=== PATIENT | female | born 1985 | race Caucasian/White ===

== ENCOUNTER → 2017-05-14 | Outpatient (CLI) | payer BC ==
[2017-05-14 09:15] LABS: BLOOD GAS CARBOXYHEMOGLOBIN 3.7 % (0-4); BLOOD GAS HCO3 32 mmol/L (22-26); BLOOD GAS METHEMOGLOBIN 0.7 % (0-2); BLOOD GAS O2 HGB SATURATION 94 % (90-100); BLOOD GAS OXYGEN CONTENT 19.1 Vol % (12.0-20.0); BLOOD GAS PCO2 47 mmHG (38-42); BLOOD GAS PO2 97 mmHG (61-120); BLOOD GAS TOTAL HGB 14.4 G/DL (12.0-16.0); TEMP CORR TO 98.6
[2017-05-14 09:16] LABS: CRITICAL VALUE NO; DRAW SITE RT RADIAL; FIO2 21 %; NUMBER OF ARTERIAL PUNCTURES 1; STAT NO; ULNAR PULSE PRESENT
== END ==
LOC: PHRSP 08:53
DX: R06.89 Other abnormalities of breathing (principal)
CPT/HCPCS: 36600; 82805; 94060; 94726; 94729

== ENCOUNTER 2017-08-16 08:07 | Emergency (ER) | payer BC ==
[~2017-08-16] VITALS: Ht 170.2 cm; Wt 147.0 kg
[~2017-08-16 08:07] MED LIST: PERC5TAB12 PO
[2017-08-16 08:09] VITALS: BP 180/90; PULSE 108; RESP 16; TEMP 98.3; O2SAT 97
[2017-08-16] MEDS ORDERED: METF500T PO (08:17)
[2017-08-16] MEDS ORDERED: SODIUM CHLOR 0.9% 1000 ML INJ 1,000 ML IV SCH (08:34)
--- NOTE | 2017-08-16 08:44 | PD ---
HPI Chief Complaint: GI Complaint Time Seen by Provider: 08:34 Travel History International Travel<30 days: No Contact w/Intl Traveler<30days: No Traveled to known affect area: No History of Present Illness HPI Patient presents with complaints of nausea vomiting and diarrhea since last night. Past Rosalio history for hypertension depression and diabetes. Denies any blood per emesis or stool. Denies any urinary symptoms. Denies . Denies sick contacts. No new rashes. Denies any chest pain or shortness of breath. PFSH Past Medical History Depression: Yes Diabetes: Yes Patient Takes Glucophage: Yes Diminished Hearing: No Hypertension: Yes Respiratory: Yes (SLEEP APNEA) Immunizations Current: Yes Sleep Apnea: Yes Influenza Vaccination: No ?: Not LMP: 2 WEEKS Past Surgical History Tonsillectomy: Yes Social History Alcohol Use: No Tobacco Use: Yes (2-1 PPD) Substance Use: No (DENIES) Allergies-Medications (Allergen,Severity, Reaction): Coded Allergies: No Known Allergies (Verified , 01/30/16) Reported Meds & Prescriptions Reported Meds & Active Scripts Active Reported Furosemide 40 Mg Tab 40 Mg PO DAILY Cephalexin 500 Mg Cap 500 Mg PO Q12H Triamterene-Hydrochlorothiazide 37.5-25 Mg Tab 1 Tab PO DAILY Metoprolol Succinate ER 24 HR (Metoprolol Succinate) 50 Mg Tab 50 Mg PO DAILY Bupropion HCl ER 24 HR (Bupropion HCl) 150 Mg Tab 150 Mg PO DAILY Dulera 120 Act Inh (Mometasone-Formoterol 120 Act Inh) 200-5 Mcg/Act Inh 2 Puff INH BID Metformin (Metformin HCl) 500 Mg Tab 500 Mg PO BIDPC Review of Systems Gastrointestinal: Positive: Nausea, Vomiting, Diarrhea Physical Exam Narrative GENERAL: Well-nourished, well-developed patient. SKIN: Focused skin assessment warm/dry. HEAD: Normocephalic. EYES: No scleral icterus. No injection or drainage. NECK: Supple, trachea midline. No JVD or lymphadenopathy. CARDIOVASCULAR: Regular rate and rhythm without murmurs, gallops, or rubs. RESPIRATORY: Breath sounds equal bilaterally. No accessory muscle use. GASTROINTESTINAL: Abdomen soft, diffusely tender, nondistended. MUSCULOSKELETAL: No cyanosis, or edema. BACK: Nontender without obvious deformity. No CVA tenderness. Data Data Last Documented VS Vital Signs Date Time Temp Pulse Resp B/P (MAP) Pulse Ox O2 Delivery O2 Flow Rate FiO2 08/16/17 09:35 20 94 Room Air 08/16/17 09:32 92 08/16/17 08:09 98.3 Orders Orders Complete Blood Count With Diff (08/16/17 08:34) Comprehensive Metabolic Panel (08/16/17 08:34) Lipase (08/16/17 08:34) Lactic Acid (08/16/17 08:34) Urinalysis - C+S If Indicated (08/16/17 08:34) Ct Abd/Pel W Iv Contrast(Rout) (08/16/17 08:34) Iv Access Insert/Monitor (08/16/17 08:34) Ecg Monitoring (08/16/17 08:34) Oximetry (08/16/17 08:34) Hydromorphone Pf Inj (Dilaudid Pf Inj) (08/16/17 08:45) Ondansetron Inj (Zofran Inj) (08/16/17 08:45) Pantoprazole Inj (Protonix Inj) (08/16/17 08:45) Sodium Chlor 0.9% 1000 Ml Inj (Ns 1000 M (08/16/17 08:34) Sodium Chloride 0.9% Flush (Ns Flush) (08/16/17 08:45) Famotidine Inj (Pepcid Inj) (08/16/17 08:45) Iohexol 350 Inj (Omnipaque 350 Inj) (08/16/17 09:17) Labs Laboratory Tests Test 08/16/17 08:30 White Blood Count 12.9 TH/MM3 Red Blood Count 5.39 MIL/MM3 Hemoglobin 14.3 GM/DL Hematocrit 43.8 % Mean Corpuscular Volume 81.1 FL Mean Corpuscular Hemoglobin 26.6 PG Mean Corpuscular Hemoglobin Concent 32.7 % Red Cell Distribution Width 13.5 % Platelet Count 314 TH/MM3 Mean Platelet Volume 8.8 FL Neutrophils (%) (Auto) 73.9 % Lymphocytes (%) (Auto) 16.2 % Monocytes (%) (Auto) 5.9 % Eosinophils (%) (Auto) 2.1 % Basophils (%) (Auto) 1.9 % Neutrophils # (Auto) 9.5 TH/MM3 Lymphocytes # (Auto) 2.1 TH/MM3 Monocytes # (Auto) 0.8 TH/MM3 Eosinophils # (Auto) 0.3 TH/MM3 Basophils # (Auto) 0.2 TH/MM3 CBC Comment DIFF FINAL Differential Comment Blood Urea Nitrogen 14 MG/DL Creatinine 0.77 MG/DL Random Glucose 297 MG/DL Total Protein 8.1 GM/DL Albumin 3.4 GM/DL Calcium Level 8.8 MG/DL Alkaline Phosphatase 46 U/L Aspartate Amino Transf (AST/SGOT) 19 U/L Alanine Aminotransferase (ALT/SGPT) 30 U/L Total Bilirubin 0.3 MG/DL Sodium Level 136 MEQ/L Potassium Level 4.0 MEQ/L Chloride Level 104 MEQ/L Carbon Dioxide Level 24.9 MEQ/L Anion Gap 7 MEQ/L Estimat Glomerular Filtration Rate 88 ML/MIN Lactic Acid Level 1.4 mmol/L Lipase 194 U/L [facility] Medical Decision Making Medical Screen Exam Complete: Yes Emergency Medical Condition: Yes Differential Diagnosis Gastroenteritis, diabetic ketoacidosis, gastritis, small bowel obstruction Narrative Course Assessment plan discussed with patient and mother at bedside. Labs reviewed. Last 72 hours Impressions Abdomen/Pelvis CT 08/16/17 0834 Signed Impressions: Service Date/Time: Wednesday, August 16, 2017 09:07 - CONCLUSION: 1. Mildly nonspecific, nonobstructive bowel gas pattern may represent a mild ileus or gastroenteritis. 2. Duplicated right kidney again noted. The upper pole moiety now demonstrates atrophic change and no acute obstruction. 3. Severe hepatic steatosis is again noted. There is mild hepatomegaly. Rosalio Gonzales MD Diagnosis Primary Impression: Gastroenteritis Patient Instructions: General Instructions Additional Instructions: Encouraged fluids, Motrin or Tylenol for pain, encouraged a bland brat high- fiber diet. Follow-up with PCP. Return to the emergency room with any onset of new symptoms. Encouraged improved control of her diabetes. Med/Other Pt SpecificInfo: Prescription(s) given Scripts Ondansetron (Zofran) 4 Mg Tab 4 MG PO Q6HR Y for NAUSEA OR VOMITING, #15 TAB 0 Refills Prov: Mal Manley MD 08/16/17 Hyoscyamine (Levsin) 0.125 Mg Tab 0.125 MG PO Q4H for Gastrointestinal disorders, #20 TAB 0 Refills Prov: Mal Manley MD 08/16/17 Disposition: 01 DISCHARGE HOME Condition: Good Mal Manley MD Aug 16, 2017 08:43
[2017-08-16] MEDS ORDERED: ONDANSETRON HCL 4 MG/2 ML VIAL IVP ONE (08:45)
[2017-08-16] MEDS ORDERED: TRIA37.5 PO (08:45)
[2017-08-16] MEDS ORDERED: PANTOPRAZOLE SODIUM 40 MG VIAL IVP ONE (08:45)
[2017-08-16] MEDS ORDERED: FAMOTIDINE 20 MG/2 ML VIAL IV PUSH ONE (08:45)
[2017-08-16] MEDS ORDERED: HYDROmorphone HCL PF 2 MG/ML VIAL IVS ONE (08:45)
[2017-08-16] MEDS ORDERED: CEPH500C PO (08:45)
[2017-08-16] MEDS ORDERED: SODIUM CHLORIDE 0.9% FLUSH 10 ML FLUSH IV FLUSH PRN (08:45)
[2017-08-16] MEDS ORDERED: DULE200A INH (08:45)
[2017-08-16] MEDS ORDERED: METO1TAB9 PO (08:45)
[2017-08-16] MEDS ORDERED: FURO40TA PO (08:45)
[2017-08-16] MEDS ORDERED: BUPR150T3 PO (08:45)
[2017-08-16 08:47] LABS: AUTOMATED NEUTROPHIL # 9.5 TH/MM3 (1.8-7.7); BASOPHIL # 0.2 TH/MM3 (0-0.2); BASOPHIL % 1.9 % (0.0-2.0); EOSINOPHIL # 0.3 TH/MM3 (0-0.4); EOSINOPHIL % 2.1 % (0.0-4.0); HEMATOCRIT 43.8 % (35.0-46.0); HEMOGLOBIN 14.3 GM/DL (11.6-15.3); LYMPH % 16.2 % (9.0-44.0); LYMPHOCYTE # 2.1 TH/MM3 (1.0-4.8); MEAN CELL VOLUME 81.1 FL (80.0-100.0); MEAN CORPUSCULAR HEMOGLOBIN 26.6 PG (27.0-34.0); MEAN CORPUSCULAR HGB CONC 32.7 % (32.0-36.0); MEAN PLATELET VOLUME 8.8 FL (7.0-11.0); MONO % 5.9 % (0.0-8.0); MONOCYTE # 0.8 TH/MM3 (0-0.9); NEUT % 73.9 % (16.0-70.0); PLATELET COUNT 314 TH/MM3 (150-450); RED BLOOD COUNT 5.39 MIL/MM3 (4.00-5.30); RED CELL DISTRIBUTION WIDTH 13.5 % (11.6-17.2); WHITE BLOOD COUNT 12.9 TH/MM3 (4.0-11.0)
[2017-08-16 08:54] LABS: CHLORIDE 104 MEQ/L (98-107); SODIUM (NA) 136 MEQ/L (136-145)
[2017-08-16 08:58] LABS: CALCIUM 8.8 MG/DL (8.5-10.1)
[2017-08-16 08:59] LABS: ALBUMIN 3.4 GM/DL (3.4-5.0); BICARBONATE 24.9 MEQ/L (21.0-32.0); BLOOD UREA NITROGEN 14 MG/DL (7-18); GLUCOSE,RANDOM 297 MG/DL (74-106)
[2017-08-16 09:02] LABS: ALT (GPT) 30 U/L (10-53); AST (GOT) 19 U/L (15-37); CREATININE 0.77 MG/DL (0.50-1.00); GLOMERULAR FILTRATION RATE 88 ML/MIN (>89)
[2017-08-16 09:03] LABS: TOTAL BILIRUBIN ADULT 0.3 MG/DL (0.2-1.0); TOTAL PROTEIN 8.1 GM/DL (6.4-8.2)
[2017-08-16 09:05] LABS: ALKALINE PHOSPHATASE 46 U/L (45-117)
[2017-08-16] MEDS ORDERED: IOHEXOL 350 MG/ML 10 ML VIAL (for RAD DIAG) IVCONTRAST ONE (09:17)
[2017-08-16 09:32] VITALS: BP 118/62; PULSE 92; RESP 20; O2SAT 94
[2017-08-16 09:35] VITALS: RESP 20; O2SAT 94
--- NOTE | 2017-08-16 09:35 | RADRPT ---
EXAM DATE/TIME: 08/16/2017 09:07 [place] COMPARISON: CT ABDOMEN & PELVIS W CONTRAST, November 18, 2015, 17:12. INDICATIONS : Nausea and vomiting since last night. History of known duplicated right kidney IV CONTRAST: 95 cc Omnipaque 350 (iohexol) IV ORAL CONTRAST: No oral contrast ingested. RADIATION DOSE: 22.35 CTDIvol (mGy) MEDICAL HISTORY : Hypertension. Diabetes. SURGICAL HISTORY : None. ENCOUNTER: Initial ACUITY: 2 days PAIN SCALE: 3/10 LOCATION: pelvis abdomen TECHNIQUE: Volumetric scanning of the abdomen and pelvis was performed. Using automated exposure control and ad justment of the mA and/or kV according to patient size, radiation dose was kept as low as reasonably achievable to obtain optimal diagnostic quality images. DICOM format image data is available electro nically for review and comparison. FINDINGS: LOWER LUNGS: The visualized lower lungs are clear. LIVER: Homogeneous density without lesion. Severe hepatic steatosis is again noted. The liver is mildly prom inent in size. There is no dilation of the biliary tree. No calcified gallstones. SPLEEN: Normal size without lesion. PANCREAS: Within normal limits. KIDNEYS: The left kidney remains unremarkable. The right kidney is again noted to be duplicated. The previousl y noted obstructed right upper pole moiety has decreased in size now demonstrates atrophic change. Th e previously noted dilated ureter has decreased in size as well. Right lower pole remains unremarkabl e with separate nondilated ureter. There are no renal calculi or solid masses. ADRENAL GLANDS: Within normal limits. VASCULAR: There is no aortic aneurysm. BOWEL/MESENTERY: No oral contrast was given limiting the sensitivity of the exam. There are multiple loops of nondilat ed air-containing small bowel several small air-fluid levels. There is liquid stool in portions of th e colon with several air-fluid levels noted on the right. There is no focal inflammatory change. Ther e is no free intraperitoneal air or fluid. ABDOMINAL WALL: Within normal limits. RETROPERITONEUM: There is no lymphadenopathy. BLADDER: No wall thickening or mass. REPRODUCTIVE: Within normal limits. INGUINAL: There is no lymphadenopathy or hernia. MUSCULOSKELETAL: Within normal limits for patient age. CONCLUSION: 1. Mildly nonspecific, nonobstructive bowel gas pattern may represent a mild ileus or gastroenteritis . 2. Duplicated right kidney again noted. The upper pole moiety now demonstrates atrophic change and no acute obstruction. 3. Severe hepatic steatosis is again noted. There is mild hepatomegaly. Rosalio Gonzales MD on August 16, 2017 at 9:28 Board Certified Radiologist. This report was verified electronically.
[2017-08-16] MEDS ORDERED: ZOFR4TAB PO (09:48)
[2017-08-16] MEDS ORDERED: LEVS0.123 PO (09:48)
== END 2017-08-16 10:14 | disposition home or self-care (01) ==
LOC: PHED 08:07
DX: K52.9 Noninfective gastroenteritis and colitis, unspecified (principal); Q63.0 Accessory kidney; K76.0 Fatty (change of) liver, not elsewhere classified; R16.0 Hepatomegaly, not elsewhere classified; F32.9 Major depressive disorder, single episode, unspecified; E11.9 Type 2 diabetes mellitus without complications; I10 Essential (primary) hypertension; G47.30 Sleep apnea, unspecified; F17.200 Nicotine dependence, unspecified, uncomplicated
CPT/HCPCS: 74177; 80053; 83605; 83690; 85025; 96361; 96374; 96375; 99284; C9113; J1170; J2405; J7030; Q9967